=== PATIENT | male | born 1955 | race Caucasian/White ===

== ENCOUNTER 2021-07-01 07:56 | Day surgery (SDC) | payer OTHER, SELFPAY ==
[~2021-07-01] VITALS: Ht 182.9 cm; Wt 106.6 kg
[2021-07-01] MEDS ORDERED: MIDAZOLAM 5 MG/5 ML VIAL ONE (10:54)
== END 2021-07-01 11:50 | disposition home or self-care (01) ==
LOC: MDS 07:56 → MMU 07:57 → MDS 11:50
PROVIDERS: ATTEND Internal Medicine Gastroenterology
DX: K21.9 Gastro-esophageal reflux disease without esophagitis (principal); I10 Essential (primary) hypertension; E11.9 Type 2 diabetes mellitus without complications; E66.9 Obesity, unspecified; Z68.31 Body mass index [BMI] 31.0-31.9, adult; Z85.828 Personal history of other malignant neoplasm of skin; Z87.891 Personal history of nicotine dependence; Z79.84 Long term (current) use of oral hypoglycemic drugs; Z79.899 Other long term (current) drug therapy; Z20.822 Contact with and (suspected) exposure to COVID-19
CPT/HCPCS: 82948; J2250; J7030